=== PATIENT | female | born 1965 | race Caucasian/White ===

== ENCOUNTER 2024-03-15 15:47 | Emergency (ER) | payer OTHER, SELFPAY ==
[2024-03-15 15:48] VITALS: BP 151/114; PULSE 126; RESP 16; TEMP 37; O2SAT 97; BMI 38.7
[2024-03-15 16:00] VITALS: BP 141/96; PULSE 128; O2SAT 97
[2024-03-15 16:14] LABS: Coronavirus 19, PCR Not Detected (NotDetected); Influenza A, PCR Not Detected (NotDetected); Influenza B, PCR Not Detected (NotDetected)
--- NOTE | 2024-03-15 16:15 | ED_ITS ---
Discharge Plan Disposition Patient Disposition: Home, Self-Care Condition: Good Prescriptions Prescriptions: New cyclobenzaprine 10 mg tablet 10 mg PO BID Qty: 60 0RF Referrals Follow up/Referrals: Anthony Escobedo [Primary Care Provider] - See instructions Activity Restrictions/Add. Instructions Additional Instructions/Restrictions: Please follow-up with your Ortho on Sunday. Take your prednisone as we discussed. Watch her glucose and drink plenty of water. Clinical Impressions Clinical Impression: Sciatica, Strain of lumbar region, Muscle spasm Instructions Patient Instructions: DI for Low Back Pain Print Language Print Language: Amharic Discharge ED Provider: Uli Gonzalez General Adult HPI <Chelohector Parrish (ED), [employer] - Last Filed: 03/15/24 19:23> General Chief complaint: Back Pain/Injury Stated complaint: SOA,back pain,fever,cough Time Seen by Provider: 03/15/24 16:00 Mode of Arrival: Wheelchair Source of Information: Patient Limitations: No Limitations Description of Symptoms (Recalled from ER Triage Doc. by RN): Patient reports increased back pain. States she has a herniated desk and has been rec'ing injections however her back pain has gotten worse and she feels she may also have the flu. History of Present Illness HPI narrative: This is a 58-year-old female who presents to the ED today for 2 complaints. First she complains that she has been exposed to the flu and says that her enti re house is infected with the flu. She states that she has had a cough and vomiting along with some mucus production. She says the worst thing that she actually came to the ED for is her back pain. She says she hurts in her lower right back with pain and numbness going down her right leg to her knee. She complains that she has chronic back pain and has received an epidural by Dr. Whiting in [place]. Patient states that she has also had bilateral knee replacements by the same physician. She admits to having L5 and S1 herniated disc. She has gabapentin to take at night for pain and tizanidine. She is allergic to oxycodone, sulfa and NSAIDs. Patient does complain that in the mornings for the last 2 mornings she has urinated on herself because she could not get to the bathroom fast enough due to her back pain. She has no saddle anesthesias. She has no bowel problems or changes. She says she is in so much pain she stands up and cannot get to the bathroom fast enough. Related Data Previous Rx's ?Medication ?Instructions ?Recorded cyclobenzaprine 10 mg tablet 10 mg PO BID #60 tabs 03/15/24 Allergies Allergy/AdvReac Type Severity Reaction Status Date / Time NSAIDS (Non-Steroidal Allergy Anaphylaxis Verified 03/15/24 16:00 Anti-Inflamma oxycodone (From OxyContin) Allergy Unknown Verified 03/15/24 16:00 allergy reaction Sulfa (Sulfonamide Allergy Unknown Verified 03/15/24 16:00 Antibiotics) allergy reaction PFSH <Chelo Parrish (ED), [employer] - Last Filed: 03/15/24 19:23> [facility] Disclaimer: The information contained in this section may have been updated after the patient was seen, as this information can be updated by other users. Social History (Updated 03/15/24 @ 18:22 by Chelo Parrish (ED), [employer]) Smoking Status: Never smoker alcohol intake: never current occupational status: other Travel in the last 8 weeks: None Have you lived/traveled outside [place] in past 30 days?: No Contact w/someone who lives/traveled outside US past 30 days?: No Exposure to someone with infectious disease in past 14 days?: Yes Do you have a fever (greater than 100.4 F or 38 C)?: Yes Have you tested positive for COVID-19: No Exposed to someone with COVID-19 in past 14 days?: No Do you have a sore throat?: No Do you have a cough?: Yes Do you have any weakness?: No Do you have any diarrhea?: No Are you experiencing any unusual bleeding?: No Do you have any muscle aches/pain?: No Do you have any abdominal pain?: No Are you experiencing loss of taste or smell?: No <Chelo Parrish (ED), [employer] ENG[employer]ER - Last Filed: 03/15/24 19:23> ROS Obtained: Yes Systems reviewed as appropriate & no additional complaints except as documented Constitutional Constitutional: Reports as per HPI Physical Exam <Chelo Parrish (ED), [employer]ER - Last Filed: 03/15/24 19:23> General General appearance: alert and in distress (With back pain) Head Head exam: atraumatic and normocephalic Eye Eye exam: Present normal appearance, PERRL and EOMI ENT ENT exam: Present normal exam, normal oropharynx and mucous membranes moist Neck Neck exam: Present normal inspection, full ROM and trachea midline Respiratory Respiratory exam: Present normal lung sounds bilaterally Cardiovascular Cardiovascular exam: Present regular rate, normal rhythm, normal heart sounds, +S1 and +S2 Abdominal Exam Abdominal exam: Present soft and normal bowel sounds Extremities Exam Extremities exam: Present normal inspection, full ROM and normal capillary refill Back Exam Back exam: Present normal inspection, tenderness, muscle spasm (To the right of lumbar spine, right buttock) and vertebral tenderness (Lumbar spine) Neurological Exam Neurological exam: Present alert and oriented X3 Skin Skin exam: Present warm, dry and intact Medical Decision Making <Chelo Parrish (ED), [employer] ENG[employer] - Last Filed: 03/15/24 19:23> Medical Records Screening: Per USPSTF and CDC recommendations, given the prevalence of disease in our region, it is our hospital?s policy to screen for HIV and viral Hepatitis for all patients aged 18 and over and those with ongoing risk factors. [place]manuel Inquiry Pt receiving controlled substance: No Enmanuel was queried for this patient: No Vital Signs: 03/15/24 15:48 03/15/24 16:00 03/15/24 17:00 Temperature 98.6 F Temperature Source Oral Pulse Rate 128 H 102 H Pulse Rate [Radial] 126 H Respiratory Rate 16 Blood Pressure 141/96 H 154/91 H Blood Pressure [Right Arm] 151/114 H Blood Pressure Mean [Right Arm] 126 Blood Pressure Source [Right Arm] Automatic Cuff Blood Pressure Position [Right Arm] Sitting 02 Sat by Pulse Oximetry 97 97 92 L Oxygen Delivery Method Room Air Room Air Room Air 03/15/24 17:10 03/15/24 18:17 Temperature 97.8 F Temperature Source Pulse Rate 106 H 94 H Pulse Rate [Radial] Respiratory Rate 16 20 Blood Pressure 159/90 H 145/82 H Blood Pressure [Right Arm] Blood Pressure Mean [Right Arm] Blood Pressure Source [Right Arm] Blood Pressure Position [Right Arm] 02 Sat by Pulse Oximetry 94 L Oxygen Delivery Method Room Air Room Air Lab Data Lab Results 03/15/24 15:58: SARS-CoV-2 (PCR) Not detected, Influenza A Untype (PCR) Not detected, Influenza Type B (PCR) Not detected Orders (Tests/Meds): ED MEDICATIONS Discontinued Medications Generic Name Dose Route Start Last Admin Trade Name Lori PRN Reason Stop Dose Admin Morphine Sulfate 2 mg 03/15/24 16:17 03/15/24 16:38 Morphine 2mg/Ml Syringe IM 03/15/24 16:18 2 mg ONCE ONE Administration Orphenadrine Citrate 60 mg 03/15/24 16:17 03/15/24 16:38 Orphenadrine Citrate 60mg/2ml Vial IM 03/15/24 16:18 60 mg ONCE ONE Administration ORDERS Category Date Time Status CT lumbar spine wo con Stat Cat Scan 03/15/24 16:17 Completed Rapid PCR Covid and Flu A/B Stat Lab 03/15/24 15:58 Completed Medical Decision Narrative: Insert review patient is a 58-year-old female presenting to the emergency department for evaluation of cough with some productive mucus and vomiting as well as muscle spasms in her right back and back pain that moves down her right leg. Patient is hemodynamically stable and appears to be in pain on arrival, afebrile. Differential diagnosis includes flu, bronchitis, low back strain or sprain among others. Workup will be conducted with flu swab, CT scan for back pain. Patient has no postvoid residual on bladder scan. She has known back problems, she tells me that she has slipped disks in her back already. Initial inventions include analgesics. Initial workup reviewed by me remarkable for H1 flu although flu swab was negative. Family is positive for H1 flu. Imaging informally interpreted by me and remarkable for degenerative disc disease, disc bulge at the L5-S1 and some spinal stenosis. Formal imaging read remarkable for arthritis and spinal stenosis at L5 and S1 along with disc bulge at up to 5 S1. Upon repeat evaluation patient's pain is improved as evidenced by patient sleeping. Patient has follow-up with her Ortho on Sunday. Patient discharged w ith muscle relaxers and she says she has steroids at home. <Uli Gonzalez MD - Last Filed: 03/15/24 23:59> Vital Signs: 03/15/24 15:48 03/15/24 16:00 03/15/24 17:00 Temperature 98.6 F Temperature Source Oral Pulse Rate 128 H 102 H Pulse Rate [Radial] 126 H Respiratory Rate 16 Blood Pressure 141/96 H 154/91 H Blood Pressure [Right Arm] 151/114 H Blood Pressure Mean [Right Arm] 126 Blood Pressure Source [Right Arm] Automatic Cuff Blood Pressure Position [Right Arm] Sitting 02 Sat by Pulse Oximetry 97 97 92 L Oxygen Delivery Method Room Air Room Air Room Air 03/15/24 17:10 03/15/24 18:17 Temperature 97.8 F Temperature Source Pulse Rate 106 H 94 H Pulse Rate [Radial] Respiratory Rate 16 20 Blood Pressure 159/90 H 145/82 H Blood Pressure [Right Arm] Blood Pressure Mean [Right Arm] Blood Pressure Source [Right Arm] Blood Pressure Position [Right Arm] 02 Sat by Pulse Oximetry 94 L Oxygen Delivery Method Room Air Room Air Lab Data Lab Results 03/15/24 15:58: SARS-CoV-2 (PCR) Not detected, Influenza A Untype (PCR) Not detected, Influenza Type B (PCR) Not detected Orders (Tests/Meds): ED MEDICATIONS Discontinued Medications Generic Name Dose Route Start Last Admin Trade Name [place] PRN Reason Stop Dose Admin Morphine Sulfate 2 mg 03/15/24 16:17 03/15/24 16:38 Morphine 2mg/Ml Syringe IM 03/15/24 16:18 2 mg ONCE ONE Administration Orphenadrine Citrate 60 mg 03/15/24 16:17 03/15/24 16:38 Orphenadrine Citrate 60mg/2ml Vial IM 03/15/24 16:18 60 mg ONCE ONE Administration ORDERS Category Date Time Status CT lumbar spine wo con Stat Cat Scan 03/15/24 16:17 Completed Rapid PCR Covid and Flu A/B Stat Lab 03/15/24 15:58 Completed Medical Decision Narrative: Insert review patient is a 58-year-old female presenting to the emergency department for evaluation of cough with some productive mucus and vomiting as well as muscle spasms in her right back and back pain that moves down her right leg. Patient is hemodynamically stable and appears to be in pain on arrival, afebrile. Differential diagnosis includes flu, bronchitis, low back strain or sprain among others. Workup will be conducted with flu swab, CT scan for back pain. Patient has no postvoid residual on bladder scan. She has known back problems, she tells me that she has slipped disks in her back already. Initial inventions include analgesics. Initial workup reviewed by me remarkable for H1 flu although flu swab was negative. Family is positive for H1 flu. Imaging informally interpreted by me and remarkable for degenerative disc disease, disc bulge at the L5-S1 and some spinal stenosis. Formal imaging read remarkable for arthritis and spinal stenosis at L5 and S1 along with disc bulge at up to 5 S1. Upon repeat evaluation patient's pain is improved as evidenced by patient sleeping. Patient has follow-up with her Ortho on Sunday. Patient discharged with muscle relaxers and she says she has steroids at home. I was consulted by the PAM, and we discussed the complexity of the problems being addressed. I approved the treatment and management plan for this patient's care in the emergency department, thus performing a substantive portion of the medical decision making. Uli Gonzalez MD Critical Care <Chelo Parrish (ED), [employer] - Last Filed: 03/15/24 19:23> Critical Care Time Critical Care Time: No
--- NOTE | 2024-03-15 16:17 | CT_ITS ---
PROCEDURE INFORMATION: Exam: CT Lumbar Spine Without Contrast Exam date and time: 03/15/2024 4:29 PM Age: 58 years old Clinical indication: Low back pain; Additional info: Midline tenderness, specifically l5-s1 area TECHNIQUE: Imaging protocol: Computed tomography of the lumbar spine without contrast. Radiation optimization: All CT scans at this facility use at least one of these dose optimization techniques: automated exposure control; mA and/or kV adjustment per patient size (includes targeted exams where dose is matched to clinical indication); or iterative reconstruction. COMPARISON: No relevant prior studies available. FINDINGS: Bones/joints: There is no evidence of acute fracture.There is no evidence of malalignment or dislocation. Broad-based disc bulge, facet hypertrophy, and ligament hypertrophy at L3/L4 and L4/L5 consistent with spinal stenosis. . Broad-based disc bulge at L5/S1 consistent with degenerative disc disease. Soft tissues: Unremarkable. IMPRESSION: 1. There is no evidence of acute fracture.There is no evidence of malalignment or dislocation. 2. Broad-based disc bulge, facet hypertrophy, and ligament hypertrophy at L3/L4 and L4/L5 consistent with spinal stenosis. . 3. Broad-based disc bulge at L5/S1 consistent with degenerative disc disease.
[2024-03-15] MEDS: MORPHINE 2MG/ML SYRINGE 2 MG IM (16:38)
[2024-03-15] MEDS: ORPHENADRINE CITRATE 60MG/2ML VIAL 60 MG IM (16:38)
--- NOTE | 2024-03-15 16:40 | PC.NURSE ---
Bladder scan revealed 0ml on multiple views. Pt does not feel like she needs to void. Call light within reach when pt needs to use the bathroom. Updated her we will need a urine sample.
[2024-03-15 17:00] VITALS: BP 154/91; PULSE 102; O2SAT 92
[2024-03-15 17:10] VITALS: BP 159/90; PULSE 106; RESP 16; O2SAT 94
[2024-03-15 18:17] VITALS: BP 145/82; PULSE 94; RESP 20; TEMP 36.6; O2SAT 95
== END 2024-03-15 18:19 | disposition home or self-care (01) ==
PROVIDERS: Nurse Practitioner; Emergency Provider Emergency Medicine; PCP Family Medicine
DX: S39.012A Strain of muscle, fascia and tendon of lower back, initial encounter (principal); M54.30 Sciatica, unspecified side; M62.838 Other muscle spasm; R06.02 Shortness of breath; R50.9 Fever, unspecified; R05.9 Cough, unspecified; M54.9 Dorsalgia, unspecified; M25.561 Pain in right knee; M79.604 Pain in right leg
CPT/HCPCS: 72131; 87636; 96372; 99284; J2270; J2360